=== PATIENT | male | born 1965 | race Caucasian/White ===

== ENCOUNTER 2018-12-09 09:33 | Outpatient (REF) | payer BC, SELFPAY ==
[2018-12-09 19:15] LABS: BUN 19 mg/dL (7-18); CREATININE 1.01 mg/dL (0.70-1.30); Calcium 8.8 mg/dL (8.5-10.1); Calculated LDL 118 mg/dL; Chloride 104 mmol/L (98-107); Cholesterol 191 mg/dL (50-200); Glucose 84 mg/dL (70-100); HDL Cholesterol 57 mg/dL (40-60); Potassium 4.6 mmol/L (3.5-5.1); Sodium 142 mmol/L (136-145); Triglyceride 80 mg/dL (30-150)
[2018-12-09 19:16] LABS: Troponin I < 0.05 ng/mL (0.00-0.06)
== END 2018-12-09 09:53 ==
LOC: NCHCN 09:33
PROVIDERS: PCP Nurse Practitioner Family; Visit Provider Nurse Practitioner Family
DX: R07.9 Chest pain, unspecified (principal); Z13.220 Encounter for screening for lipoid disorders
CPT/HCPCS: 80048; 80061; 83721; 84484

== ENCOUNTER 2019-01-02 00:12 | Outpatient (CLI) | payer BC, SELFPAY ==
--- NOTE | 2019-01-02 10:30 | ETT_ITS ---
*[facility]* *[facility]* [address] [place] [address] Stress Electrocardiography Nilesh protocol Date of study: 01/02/2019 *PATIENT PRESENTATION* Height: 170.2cm (67in) Blood Pressure: Weight: 77.3kg (170lb) BSA: 1.93m^2 Ordering physician: Alcira Dos Santos Impressions: Normal study after maximal exercise. Summary: 1. Stress: The target heart rate was achieved. Indication: R07.9. History: REASON FOR TESTING: FOR THE PAST MONTH PATIENT STATES HE HAS BEEN HAVING CONSTANT LEFT SIDED CHEST PRESSURE (2/10). PATIENT REPORTS 2/10 LEFT SIDED PRESSURE UPON ARRIVAL TO TESTING TODAY. NO SIGNIFICANT PAST MEDICAL HISTORY REPORTED. SMOKING STATUS: SMOKED FOR 30 YEARS. 1 PPD. EXERCISE ROUTINE: PATIENT IS A SHARP. DAILY ADL'S. Risk factors: Family history of coronary artery disease. Current tobacco use. Hypertension. Dyslipidemia. Cholesterol: 191mg/dl. HDL: 57mg/dl. LDL: 137mg/dl. Triglycerides: 80mg/dl. ALLERGIES: SATHISH INHIBITORS. MEDICATIONS: METOPROLOL TARTRATE 25 MG DAILY, NORVASC 10 MG DAILY. Protocol: Nilesh protocol. Baseline ECG: SINUS BRADYCARDIA. HR 54 BPM. Stress protocol: + +---+ + !Stage !HR !BP (mmHg) ! + +---+ + !Baseline supine !54 !138/86 (103)! + +---+ + !Baseline standing !56 !132/80 (97) ! + +---+ + !Stage I; 1.7mph, 10degrees; 3 min !90 !142/84 (103)! + +---+ + !Stage II; 2.5mph, 12degrees; 3 min !120!152/90 (111)! + +---+ + !Stage III; 3.4mph, 14degrees; 3 min!146!168/72 (104)! + +---+ + !Peak stress !158! ! + +---+ + !Recovery; 1 min !122!184/60 (101)! + +---+ + !Recovery; 3 min !92 !170/60 (97) ! + +---+ + !Recovery; 6 min !85 !122/78 (93) ! + +---+ + !Recovery; 8 min !87 !130/80 (97) ! + +---+ + !Recovery; 10 min !79 !132/84 (100)! + +---+ + * Stress results: STRESS TEST ENDED IN 9 MINUTES DUE TO FATIGUE. NORMAL HEART RATE AND BLOOD PRESSURE RESPONSE TO EXERCISE. MAX HEART RATE: 158. 94 % OF TARGET HEART RATE ACHIEVED. MET'S: 10.16. NO ECTOPY. PATIENT REPORTED CONSTANT LEFT SIDED CHEST PRESSURE (2/10) FOR THE PAST MONTH, PRIOR TO TESTING , DURING TESTING AND UPON LEAVING AFTER STRESS TEST COMPLETE TODAY. NO SIGNIFICANT ST SEGMENT CHANGES. AVERAGE FUNCTIONAL CAPACITY. The target heart rate was achieved. The rate-pressure product for the peak heart rate and blood pressure was 09509km Hg/min. Study data: Johnathon Martinez MD supervised and was readily available during the procedure. This study was interpreted by [facility]. Study status: Routine. Consent: The risks, benefits, and alternatives to the procedure were explained to the patient and informed consent was obtained. Procedure: Initial setup. A baseline ECG was recorded. Surface ECG leads and manual cuff blood pressure measurements were monitored. Heart sounds: Normal. Lung sounds: Normal. Treadmill exercise testing was performed using the Nilesh protocol. Study completion: The patient tolerated the procedure well and was discharged from the lab. Discharge: The patient left the laboratory in stable condition. Birthdate: Patient birthdate: 1965. Sex: Gender: male. Study date: Study date: 01/02/2019. Study time: 00:01 AM. Signature Documentation: The Stress ECG portion of this study was interpreted by Johnathon Martinez MD. Electronically signed by Johnathon Martinez 01/02/2019 12:22
== END 2019-01-02 00:32 ==
PROVIDERS: PCP Nurse Practitioner Family; Visit Provider Nurse Practitioner Family
DX: R07.9 Chest pain, unspecified (principal); I10 Essential (primary) hypertension; F17.200 Nicotine dependence, unspecified, uncomplicated
CPT/HCPCS: 93017

== ENCOUNTER 2020-02-16 17:12 | Outpatient (REF) | payer SELFPAY ==
[2020-02-16 20:13] LABS: ALT 36 U/L (16-63); AST 16 U/L (15-37); Albumin 4.1 g/dL (3.4-5.0); Alkaline Phosphatase 86 U/L (46-116); Anion Gap 7.4 mmol/L (3-11); BUN 18 mg/dL (7-18); Bilirubin, Total 0.2 mg/dL (0.2-1.0); CO2 29.6 mmol/L (21.0-32.0); CREATININE 0.98 mg/dL (0.70-1.30); Calculated LDL 119 mg/dL (<100); Chloride 102 mmol/L (98-107); Cholesterol 206 mg/dL (<200); Glucose 103 mg/dL (74-106); HDL Cholesterol 57 mg/dL (40-60); Potassium 4.2 mmol/L (3.5-5.1); Sodium 139 mmol/L (136-145); Total Protein 7.8 g/dL (6.4-8.2); Triglyceride 150 mg/dL (<150)
[2020-02-16 20:37] LABS: Amylase 64 U/L (25-115); Bilirubin, Direct 0.09 mg/dL (0.00-0.20); Lipase 68 U/L (73-393)
[2020-02-20 13:03] LABS: Hepatitis B Surface Ab Negative
[2020-02-20 13:04] LABS: HBs Antibody, Quant <5.0 mIU/mL (See Note)
[2020-02-24 16:30] LABS: Hep A Antibody IgM Negative (Negative)
== END 2020-02-16 17:32 ==
LOC: NCHCN 17:12
PROVIDERS: PCP Nurse Practitioner Family; Visit Provider Nurse Practitioner Family
DX: I10 Essential (primary) hypertension (principal); R10.11 Right upper quadrant pain; E78.5 Hyperlipidemia, unspecified
CPT/HCPCS: 80048; 80061; 80076; 83690; 86706; 86709; 82150

== ENCOUNTER 2023-06-01 12:48 | Outpatient (REF) | payer MEDICAID, SELFPAY ==
--- NOTE | 2023-06-01 09:22 | SKI_PTH ---
PATIENT: Morales Yarbrough LOC: [facility] U#:[id number] AGE/SX: 58/M ROOM: RE06/01/[address]: Clayton Escalante DO : 1965 BED: DIS: 06/01/2023 SPEC #: [id number] RECD: 06/01/23 16:36 STATUS: KIRBY REQ #: [id number] TIFF: 06/01/23 09:[address]: Clayton Escalante DEPT: Surgical Specimen RECD BY: Guerline Shirley ENTERED: 06/01/23 16:37 SP TYPE: URIEL FAUSTIN DR: Unknown,Unknown Tissues: 1 - SKIN BIOPSY(SHAVE/PUNCH) Procedures: SKIN LEVEL 4 Comments: [id number]
== END 2023-06-01 12:49 | disposition home or self-care (01) ==
LOC: LBN 12:48
PROVIDERS: Referring Provider Otolaryngology Otolaryngology/Facial Plastic Surgery; Visit Provider Otolaryngology Otolaryngology/Facial Plastic Surgery
DX: C44.92 Squamous cell carcinoma of skin, unspecified
CPT/HCPCS: 88305

== ENCOUNTER → 2023-07-18 03:16 | Outpatient (CLI) | payer MEDICAID, SELFPAY ==
--- NOTE | 2023-07-18 08:00 | DI.CT_ITS ---
Exam(s) CT NECK CHEST W EXAM: CT NECK CHEST W CLINICAL HISTORY: Large SCC of skin,c44.92. TECHNIQUE: Imaging Protocol: Axial computed tomography images with coronal and sagittal reformatted images were created and reviewed. CONTRAST MATERIAL: Intravenous: Omnipaque 350 Contrast volume:100mL COMPARISON: No exams were available for comparison FINDINGS: Orbits and orbital soft tissues: Within normal limits. Visualized paranasal sinuses: Within normal limits. Nasopharynx: Within normal limits. Oropharynx: Within normal limits. Hypopharynx: Within normal limits. Larynx: Within normal limits. Retropharyngeal space: Within normal limits. Parotids/submandibular: Within normal limits. Thyroid gland: Within normal limits. Lymphadenopathy: There is scattered lymph nodes seen along the level one to level three all measurin g less than 8 mm in short axis diameter which are physiologic in nature. Trachea: Within normal limits. Bones: Within normal limits for the patient's age. Carotids/Jugular: Within normal limits. Soft tissues: Mild infiltration in the subcutaneous tissues of the right posterior neck but no foca l fluid collection or mass is seen at this time. Tracheobronchial tree: Patent where visualized. Pulmonary parenchyma: No consolidation or dominant measurable mass. Centrilobular emphysematous mendoza es are present. Mediastinum and Erika: No dominant adenopathy or fluid collection. The esophagus is unremarkable. Thyroid gland: Unremarkable. Pleura: No effusion or pneumothorax. Heart: The heart is not dilated. No coronary artery calcifications are seen. No pericardial effusion. Aorta: Thoracic aorta non-dilated. No evidence of dissection. Pulmonary arteries: Due to the bolus timing, pulmonary artery evaluation for pulmonary emboli is limi en. No large central pulmonary embolus is seen. Upper abdomen: Cholelithiasis. Lymph nodes: Within normal limits. Bones: Within normal limits for the patient's age. Soft tissues: Unremarkable. IMPRESSION: 1. No evidence of thoracic metastatic disease. 2. No evidence of cervical adenopathy. 3. Mild infiltration in the subcutaneous tissues of the right posterior neck but no focal fluid colle ction or mass is seen at this time. RADIATION DOSE DELIVERED: Total DLP DATA REPOSITORY: All CT scans at this facility are submitted to the National Radiology Data Registry (NRDR) Dose Index Registry (DIR) with the [employer] (ACR). RADIATION OPTIMIZATION: All CT scans at this facility use at least one of these dose optimization te chniques: automated exposure control; mA and/or kV adjustment per patient size (includes targeted exa ms where dose is matched to clinical indication); or iterative reconstruction.
[2023-07-18] MEDS: Omnipaque 350 MG/ML 100 ML BTL IJ (14:59)
== END ==
PROVIDERS: Visit Provider Physician Assistant
DX: C44.622 Squamous cell carcinoma of skin of right upper limb, including shoulder (principal); M79.89 Other specified soft tissue disorders; Z12.89 Encounter for screening for malignant neoplasm of other sites
CPT/HCPCS: 70491; 71260; J3490

== ENCOUNTER 2023-09-26 14:43 | Outpatient (REF) | payer MEDICAID, SELFPAY ==
[2023-09-26 15:13] LABS: Abs Immature Grans 0.01 10^3/uL (0.0-0.06); Absolute Eosinophil Count 0.14 10^3/uL (0.0-0.7); Absolute Lymphocyte Count 2.71 10^3/uL (1.2-3.4); Absolute Monocyte Count 0.52 10^3/uL (0.1-0.8); Absolute Neutrophil Count 3.67 10^3/uL (1.2-6.7); Basophils % 1.4 %; HCT 48.5 % (40.0-50.0); HGB 15.8 g/dL (13.5-17.5); Immature Grans % 0.1 %; Lymphocytes % 37.9 %; MCH 29.8 pg (27.0-33.0); MCHC 32.6 % (32.0-36.0); MCV 92 fL (80-95); MPV 11.1 fL (8.0-11.0); Monocytes % 7.3 %; Neutrophils % 51.3 %; Platelet Count 296 10^3/uL (130-400); RDW-SD 44.1 fL; WBC 7.15 10^3/uL (4.4-10.8)
[2023-09-26 15:30] LABS: ALT 36 U/L (16-63); AST 19 U/L (15-37); Albumin 4.2 g/dL (3.4-5.0); Alkaline Phosphatase 87 U/L (46-116); Anion Gap 6.9 mmol/L (3-11); BUN 16 mg/dL (7-18); Bilirubin, Total 0.4 mg/dL (0.2-1.0); CO2 31.1 mmol/L (21.0-32.0); CREATININE 0.9 mg/dL (0.70-1.30); Calcium 9.4 mg/dL (8.5-10.1); Calculated LDL 122 mg/dL (<100); Chloride 104 mmol/L (98-107); Cholesterol 210 mg/dL (<200); Glucose 87 mg/dL (74-106); HDL Cholesterol 65 mg/dL (40-60); Potassium 4.3 mmol/L (3.5-5.1); Sodium 142 mmol/L (136-145); Total Protein 7.6 g/dL (6.4-8.2); Triglyceride 117 mg/dL (<150)
== END 2023-09-26 14:44 | disposition home or self-care (01) ==
LOC: NCHCN 14:43
PROVIDERS: Visit Provider Student in an Organized Health Care Education/Training Program
DX: I10 Essential (primary) hypertension (principal); E78.5 Hyperlipidemia, unspecified
CPT/HCPCS: 80053; 80061; 85025

== ENCOUNTER 2023-11-09 08:20 | Outpatient (CLI) | payer MEDICAID, SELFPAY ==
--- NOTE | 2023-11-09 08:17 | DI.RAD_ITS ---
Exam(s) XR WRIST LT COMPLETE EXAM: XR WRIST LT COMPLETE CLINICAL HISTORY: L wrist pain. TECHNIQUE: 2D digital imaging was performed of the left wrist. Three images were obtained. PA, obl ique and lateral views were obtained. COMPARISON: No exams were available for comparison FINDINGS: BONES: No acute fracture is present. No bony destructive lesion is seen. There is a simple appearing cyst in the radial styloid process. JOINTS: There is narrowing of the lateral aspect of the radiocarpal joint. SOFT TISSUE: Normal. IMPRESSION: Degenerative changes seen at the radiocarpal joint. DATA REPOSITORY: RADIATION DOSE DELIVERED:
== END 2023-11-09 08:21 | disposition home or self-care (01) ==
LOC: DIORS 08:21
PROVIDERS: PCP Student in an Organized Health Care Education/Training Program; Referring Provider Student in an Organized Health Care Education/Training Program; Visit Provider Physician Assistant
DX: M25.532 Pain in left wrist (principal); M19.032 Primary osteoarthritis, left wrist
CPT/HCPCS: 73110

== ENCOUNTER 2024-01-15 10:10 | Day surgery (SDC) | payer MEDICAID, SELFPAY ==
[2024-01-15 10:44] VITALS: BP 139/89; PULSE 70; RESP 18; TEMP 36.3; O2SAT 98
[2024-01-15] MEDS: Lactated Ringers 1,000 ML 80 ML IV (11:02)
[2024-01-15] MEDS: Acetaminophen 500 MG TAB 1000 MG PO (11:11)
[2024-01-15] MEDS: Celecoxib 200 MG CAP 400 MG PO (11:12)
--- NOTE | 2024-01-15 11:22 | W.PM.DSUDISC ---
Date of service: 01/15/24 Time of Service: 12:46 Discharge Plan Disposition Patient Disposition: Home Condition: Good Discharge Details Reason For Visit: Left DeLydia's Tenosynovitis Attending Provider: Sarbjit Pelaez Primary Care Provider: Marko Mariscal Home Meds and New Rx's Prescriptions: New hydrocodone-acetaminophen 5-325 mg tablet 1 tab PO Q6H PRN (Reason: severe pain) Qty: 4 0RF Rx Instructions: Take one tablet up to every 6 hours as needed for severe postoperative pain acetaminophen 500 mg tablet 500 mg PO Q6H PRN (Reason: pain) Qty: 60 2RF ibuprofen 600 mg tablet 600 mg PO TID PRN (Reason: pain) Qty: 60 0RF Continued amlodipine 10 mg tablet 10 mg PO HS albuterol sulfate 90 mcg/actuation HFA aerosol inhaler 1 inh inhalation PRN Discharge Instructions Additional Instructions: Vincent's Discharge Instructions Activity: You should keep the hand elevated as much as possible for the first few days. You may use the other fingers as tolerated but avoid trying to do too much too soon. You may perform light activities with the splint in place. Dressing/Cast: Your splint should stay in place at all times. Do NOT get it wet. You may loosen the SATHISH wrap if you feel it is too tight and then rewrap more loosely. Medications: - You should take Tylenol and Ibuprofen for baseline pain control. - You have Hydrocodone for breakthrough pain. - You may apply ice over the thumb. Follow-up: 7-10 days Referrals: Sarbjit Pelaez MD [ [facility] STAFF PHYSICIAN] - Equipment/Supplies: Splint Activity:: Elevate Remove Dressings/Wound Care:: Do Not Remove Shower/Bathe:: Cover Diet:: As Tolerated Discharge Orders Discharge Orders: Discharge Order (Routine); Ordered 01/15/24 Ordered By: Shakira Hernandez
[2024-01-15 11:35] VITALS: BMI 24.7
--- NOTE | 2024-01-15 11:35 | W.ANESPRE ---
General Info Date of Service Date Performed: 01/15/24 Height: 5 ft 8 in Weight: 73.936 kg Body Mass Index (BMI): 24.7 Surgical Procedure: Operation Date: 01/15/24 13:10 Proposed Procedure Side Surgeon p Wrist Dequervains Release Left Sarbjit Pelaez MD Meds Allergies and Home Medications Allergies Allergy/AdvReac Type Severity Reaction Status Date / Time morphine Allergy Intermediate unknown Verified 01/15/24 10:41 SATHISH Inhibitors Allergy cough Verified 01/15/24 10:41 Home Medication ?Medication ?Instructions ?Recorded amlodipine 10 mg tablet 10 mg PO HS 11/09/23 acetaminophen 500 mg tablet 500 mg PO Q6H PRN pain #60 tabs 01/15/24 albuterol sulfate 90 mcg/actuation 1 inh inhalation PRN 01/15/24 aerosol inhaler hydrocodone 5 mg-acetaminophen 325 1 tab PO Q6H PRN severe pain #4 01/15/24 mg tablet tabs ibuprofen 600 mg tablet 600 mg PO TID PRN pain #60 tabs 01/15/24 Current Visit Medications: Current Medications Generic Name Dose Route Start Last Admin Trade Name Freq PRN Reason Stop Dose Admin Acetaminophen 1,000 mg 01/15/24 06:00 01/15/24 11:11 Acetaminophen 500 Mg Tab PO 02/13/24 23:59 1,000 mg PREOP SUNNI Administration Acetaminophen 650 mg 01/15/24 11:22 Acetaminophen 325 Mg Tab PO 02/14/24 11:21 Q4H PRN PRN Hydrocodone Bitart/Acetaminophen 0 tab 01/15/24 11:22 Hydrocodone 5/Acetaminophen 325 Tab PO 02/14/24 11:21 Q3H PRN PRN Pain Celecoxib 400 mg 01/15/24 06:00 01/15/24 11:12 Celecoxib 200 Mg Cap PO 02/13/24 23:59 400 mg PREOP SUNNI Administration Ringer's Solution 1,000 mls @ 80 mls/hr 01/15/24 06:00 01/15/24 11:02 IV 02/13/24 23:59 80 mls/hr INFUSION SUNNI Administration Cefazolin Sodium/Dextrose 2 gm in 50 mls @ 100 mls/hr 01/15/24 06:00 Ancef Duplex IVPB 02/13/24 23:59 PREOP SUNNI IV Miscellaneous Supplies 1 each 01/15/24 06:00 Iv Access IV 02/13/24 23:59 DIRECTED SUNNI Sodium Chloride 0 ml 01/15/24 06:00 Normal Saline Flush 10 Ml Syr IV 02/13/24 23:59 PRN PRN Sodium Chloride 0 ml 01/15/24 06:00 Normal Saline 10 Ml Vial IJ 02/13/24 23:59 DIRECTED PRN Sterile Water 0 ml 01/15/24 06:00 Water,Injection,Sterile 10 Ml Vial IJ 02/13/24 23:59 DIRECTED PRN PFSH Active Problems Active Problems: Problem Status Onset Code Skin cancer screening Acute Z12.83 De Quervain's tenosynovitis, left Acute M65.4 Visit for suture removal Acute Z48.02 History of squamous cell carcinoma of skin Acute Z85.828 SCCA (squamous cell carcinoma) of skin Acute C44.92 Medical History Medical History Emphysema lung Family history of heart failure Self-injurious behavior Right upper quadrant pain Amnesia 20-30 years ago-fell hit back of head on ice Essential hypertension Memory impairment Hypertension Chest pain pt. states long time ago, never turned into anything just went away Surgical History Surgical History History of surgery Exc. skin cancer S/P left knee arthroscopy History of repair of ACL Right knee, 2 screws History of colonoscopy Tobacco Smoking/Tobacco Use Status: Current every day Tobacco Type: cigarettes Alcohol Alcohol Intake: former Substance Use Substance use: Occasionally Substance use type: does not use and marijuana Vital Signs and Lab Results Vital Signs Most Recent Vital Signs in EMR: Most Recent Vital Signs Temp Pulse Resp BP Pulse Ox 36.3 C L 70 18 139/89 98 01/15/24 10:44 01/15/24 10:44 01/15/24 10:44 01/15/24 10:44 01/15/24 10:44 Lab Results Blood Type / Crossmatch: No Data to Display Complete Blood Count: No Data to Display Complete Metabolic Panel: No Data to Display Liver Function Panel: No Data to Display Coagulation Panel: No Data to Display Cardiac Panel: No Data to Display Arterial Blood Gas: No Data to Display Venous Blood Gas: No Data to Display Pancreas Panel: No Data to Display Thyroid Panel: No Data to Display Infectious Disease: No Data to Display Blood Cultures: No Data to Display Toxicology Panel: No Data to Display Anesthesia Assessment and Plan Anesthesia History Personal History: No History of Anesthesia Complications Family History: No Family History of Anesthesia Complications Exercise Tolerance Exercise Tolerance: Metabolic Equivalents>4 Pertinent Negatives Pertinent Negatives: No Symptoms of GERD Cardiac & Pulmonary Exam Cardiac Exam: Normal S1/S2 Heart Sounds Pulmonary Exam: Clear Bilateral Breath Sounds Implantable Cardiac Device Does patient have a Pacemaker or an ICD?: No Airway Exam Known Difficult Airway: No Mallampati Class: 2 Mouth Opening: Normal (> 3cm) Thyromental Distance: Greater than 3 cm Neck Range of Motion: Full ROM Neck Circumference: Normal Teeth Condition: Normal Dentition ASA Classification ASA Score: ASA 2 Emergency Case?: No NPO Status NPO Status: NPO Clears >2 hours, Solids >8 hours Anesthesia Plan Resuscitation Status: Full Code Anesthesia Technique: General Anesthesia Airway Planned: Natural Airway Monitors Used: Standard Monitors
[2024-01-15] MEDS: ceFAZolin 2 GM/50 ML BAG IVPB (12:20)
[2024-01-15] MEDS: Lidocaine 1% Pres-Free 30 ML VIAL (12:34)
[2024-01-15] MEDS: Sodium Bicarbonate 50 MEQ/50 ML VIAL (12:34)
[2024-01-15 12:49] VITALS: BP 102/78; PULSE 79; RESP 20; TEMP 35.5; O2SAT 96
--- NOTE | 2024-01-15 13:01 | W.ANESPOSTOP ---
Postoperative Evaluation Date, Time and Location Date Performed: 01/15/24 Time Performed: 13:01 Patient Location: Day Surgery Unit Vital Signs Most Recent Imported Vital Signs: Most Recent Vital Signs Temp Pulse Resp BP Pulse Ox 35.5 C L 79 20 102/78 96 01/15/24 12:49 01/15/24 12:49 01/15/24 12:49 01/15/24 12:49 01/15/24 12:49 Pain Score Most Recent Pain Score: Most Recent Pain Score Pain Level 0 01/15/24 12:49 Assessment Mental Status: Awake (Alert & Oriented to Patient Baseline) Airway and Respiratory Function: Patent airway with normal (patient baseline) respiratory exam Cardiovascular Function: Hemodynamically Stable Hydration Status: Adequately Hydrated Nausea & Vomiting: No Nausea or Vomiting Pain: Pt. Denies Any Pain Peripheral Nerve Block: Patient did not receive a nerve block Postoperative Comments:: Pt had significant MIKE with productive cough during procedure. Talked with pt in post-op about cig./THC smoking. Pam Barry CRNA
[2024-01-15 13:30] VITALS: BP 144/99; PULSE 69; RESP 20; TEMP 36.7; O2SAT 98
--- NOTE | 2024-01-15 14:21 | W.PM.OP ---
Date of service: 01/15/24 Time of Service: 12:20 Operative Note Operative Note DATE OF PROCEDURE: 01/15/24 PRE-OP DIAGNOSIS: Left Dequervain's Tenosynovitis POST-OP DIAGNOSIS: same PROCEDURE: Left First Extensor Compartment Release SURGEON: Sarbjit Pelaez ANESTHESIA TYPE: General:No Airway Refer to Anesthesia Record ESTIMATED BLOOD LOSS: 2 PATHOLOGY: none sent TOURNIQUET TIME: 5 COMPLICATIONS: None Patient was transported to: same day Patient's condition: stable Indications: Morales is a 58 year old male who has had symptoms of Dequervain's tenosynovitis. Nonoperative treatment options had been trialed. Given their failure, I offered operative intervention. I reviewed the technical details of a first extensor compartment release. I reviewed the risk of the procedure to include bleeding, infection, pain, stiffness, tendon instability, damage to the superficial radial nerve, and complete release. Despite these risks, the patient elected to proceed. Findings: There was a tightened first extensor compartment. There is notable synovitis and fluid seen within the first extensor compartment. Procedure Description: Morales was greeted in the preoperative holding area. Name and surgical site were confirmed. The history and physical was completed. The consent was reviewed the patient and signed. He was taken back to the operating room. The patient was placed in the supine position and monitored anesthesia care was initiated. The left was then prepped with ChloraPrep and draped in a standard fashion after a nonsterile tourniquet was placed high up onto the arm. Prophylactic antibiotics in the form of cefazolin were administered. A timeout was performed for safe surgery. The surgical site was drawn on the skin. The planned surgical field was anesthetized with 0.25% bupivacaine with epinephrine. The limb was exsanguinated and the tourniquet was inflated where it stayed for 5 minutes. A 2 cm incision was made longitudinally over the radial styloid. The skin was incised only. The deep tissue subcutaneous fat was dissected with a tenotomy scissors trying to protect bridge of the superficial radial nerve. Any branches that were identified were retracted out of the way. The first compartment extensor tendons were then identified. The distal aspect of the first compartment was noted and were released. This release was performed more on the dorsal side to prevent tendon subluxation. The entirety of the first extensor compartment was then released. The slips of the abductor pollicis longus tendon were inspected. They removed to confirm the appropriate motion of the thumb. The extensor pollicis brevis tendon was then identified. There was no separate subcompartment for the extensor pollicis brevis. Traction on the tendon was also used to confirm appropriate extension of the thumb confirming the release of the appropriate tendon. The dorsal radial surface of the radius was once again inspected to make sure there is no other sub-compartments or other restrictions to tendon motion. The wound was then thoroughly irrigated. The deep tissue was closed with a 3-0 Vicryl. The skin was closed with a running subjective 4-0 Monocryl. Skin glue was applied. The tourniquet is released without significant bleeding. The hand was dressed with 4 x 4's, Kerlex and SATHISH wrap into a soft thumb spica splint. All counts were correct. Patient was transferred back to same day surgery area in stable condition.
== END 2024-01-15 13:45 | disposition home or self-care (01) ==
PROVIDERS: PCP Student in an Organized Health Care Education/Training Program; Visit Provider Student in an Organized Health Care Education/Training Program
PROC: (CPT 25000; principal; 2024-01-15 13:00)
DX: M65.4 Radial styloid tenosynovitis [de Quervain] (principal)
CPT/HCPCS: 25000; J0690; J1100; J2405; J2704

== ENCOUNTER 2024-03-07 11:24 | Day surgery (SDC) | payer MEDICAID, SELFPAY ==
[2024-03-07 12:05] VITALS: BP 141/98; PULSE 69; RESP 20; TEMP 36.7; O2SAT 98
[2024-03-07] MEDS: Normal Saline Flush 10 ML SYR IV (12:27)
--- NOTE | 2024-03-07 13:39 | W.ANESPRE ---
General Info Date of Service Date Performed: 03/07/24 Height: 5 ft 8 in Weight: 70.4 kg Body Mass Index (BMI): 23.6 Surgical Procedure: Operation Date: 03/07/24 14:05 Proposed Procedure Side Surgeon thuy ROJAS MD Meds Allergies and Home Medications Allergies Allergy/AdvReac Type Severity Reaction Status Date / Time morphine Allergy Intermediate unknown Verified 03/07/24 12:04 SATHISH Inhibitors Allergy cough Verified 03/07/24 12:04 Home Medication ?Medication ?Instructions ?Recorded amlodipine 10 mg tablet 10 mg PO HS 11/09/23 acetaminophen 500 mg tablet 500 mg PO Q6H PRN pain #60 tabs 01/15/24 albuterol sulfate 90 mcg/actuation 1 inh inhalation PRN 01/15/24 aerosol inhaler ibuprofen 600 mg tablet 600 mg PO TID PRN pain #60 tabs 01/15/24 bisacodyl 5 mg tablet,delayed 5 mg PO ONCE #4 tabs 02/21/24 release (Dulcolax (bisacodyl)) polyethylene glycol 3350 17 17 g PO ONCE #238 grams 02/21/24 gram/dose oral powder Current Visit Medications: Current Medications Generic Name Dose Route Start Last Admin Trade Name Freq PRN Reason Stop Dose Admin IV Miscellaneous Supplies 1 each 03/07/24 06:00 Iv Access IV 04/05/24 23:59 DIRECTED SUNNI Sodium Chloride 0 ml 03/07/24 06:00 03/07/24 12:27 Normal Saline Flush 10 Ml Syr IV 04/05/24 23:59 10 ml PRN PRN Administration Sodium Chloride 0 ml 03/07/24 06:00 Normal Saline 10 Ml Vial IJ 04/05/24 23:59 DIRECTED PRN Sterile Water 0 ml 03/07/24 06:00 Water,Injection,Sterile 10 Ml Vial IJ 04/05/24 23:59 DIRECTED PRN PFSH Active Problems Active Problems: Problem Status Onset Code Skin cancer screening Acute Z12.83 Visit for suture removal Acute Z48.02 History of squamous cell carcinoma of skin Acute Z85.828 SCCA (squamous cell carcinoma) of skin Acute C44.92 Medical History Medical History Emphysema lung Family history of heart failure Self-injurious behavior Right upper quadrant pain Amnesia 20-30 years ago-fell hit back of head on ice Essential hypertension Memory impairment Hypertension Chest pain pt. states long time ago, never turned into anything just went away Surgical History Surgical History (Updated 03/05/24 @ 11:54 by Prashant Abarca) History of surgery on wrist De Quervain's tenosynovitis, left Status post release: 01/15/2024 Injection: 11/09/2023 History of surgery Exc. skin cancer S/P left knee arthroscopy History of repair of ACL Right knee, 2 screws History of colonoscopy Tobacco Smoking/Tobacco Use Status: Current every day Tobacco Type: cigarettes Alcohol Alcohol Intake: former Substance Use Substance use: Socially Substance use type: marijuana Vital Signs and Lab Results Vital Signs Most Recent Vital Signs in EMR: Most Recent Vital Signs Temp Pulse Resp BP Pulse Ox 36.7 C 69 20 141/98 H 98 03/07/24 12:05 03/07/24 12:05 03/07/24 12:05 03/07/24 12:05 03/07/24 12:05 Lab Results Blood Type / Crossmatch: No Data to Display Complete Blood Count: No Data to Display Complete Metabolic Panel: No Data to Display Liver Function Panel: No Data to Display Coagulation Panel: No Data to Display Cardiac Panel: No Data to Display Arterial Blood Gas: No Data to Display Venous Blood Gas: No Data to Display Pancreas Panel: No Data to Display Thyroid Panel: No Data to Display Infectious Disease: No Data to Display Blood Cultures: No Data to Display Toxicology Panel: No Data to Display Imaging and Studies Imaging and Studies Study information below may be from another EMR and interpreted by another provider. Please see original notes in EMR for more complete details. Stress Test Summary: STRESS TEST PATIENT NAME: BRITTANI GONZALEZ UNIT #: [id number] ADMITTING PROVIDER: MARIANA RECIO, [facility] PROVIDER: Alcira Dos Santos NP DATE OF SERVICE: 01/02/19 : 1965 *[facility]* *[facility]* [address] [place] [address] Stress Electrocardiography Nilesh protocol Date of study: 01/02/2019 *PATIENT PRESENTATION* Height: 170.2cm (67in) Blood Pressure: Weight: 77.3kg (170lb) BSA: 1.93m^2 Ordering physician: Alcira Dos Santos Impressions: Normal study after maximal exercise. Summary: 1. Stress: The target heart rate was achieved. Indication: R07.9. History: REASON FOR TESTING: FOR THE PAST MONTH PATIENT STATES HE HAS BEEN HAVING CONSTANT LEFT SIDED CHEST PRESSURE (2/10). PATIENT REPORTS 2/10 LEFT SIDED PRESSURE UPON ARRIVAL TO TESTING TODAY. NO SIGNIFICANT PAST MEDICAL HISTORY REPORTED. SMOKING STATUS: SMOKED FOR 30 YEARS. 1 PPD. EXERCISE ROUTINE: PATIENT IS A SHARP. DAILY ADL'S. Risk factors: Family history of coronary artery disease. Current tobacco use. Hypertension. Dyslipidemia. Cholesterol: 191mg/dl. HDL: 57mg/dl. LDL: 137mg/dl. Triglycerides: 80mg/dl. ALLERGIES: SATHISH INHIBITORS. MEDICATIONS: METOPROLOL TARTRATE 25 MG DAILY, NORVASC 10 MG DAILY. Protocol: Nilesh protocol. Baseline ECG: SINUS BRADYCARDIA. HR 54 BPM. Stress protocol: + +---+ + !Stage !HR !BP (mmHg) ! + +---+ + !Baseline supine !54 !138/86 (103)! + +---+ + !Baseline standing !56 !132/80 (97) ! + +---+ + !Stage I; 1.7mph, 10degrees; 3 min !90 !142/84 (103)! + +---+ + !Stage II; 2.5mph, 12degrees; 3 min !120!152/90 (111)! + +---+ + !Stage III; 3.4mph, 14degrees; 3 min!146!168/72 (104)! + +---+ + !Peak stress !158! ! + +---+ + !Recovery; 1 min !122!184/60 (101)! + +---+ + !Recovery; 3 min !92 !170/60 (97) ! + +---+ + !Recovery; 6 min !85 !122/78 (93) ! + +---+ + !Recovery; 8 min !87 !130/80 (97) ! + +---+ + !Recovery; 10 min !79 !132/84 (100)! + +---+ + * Stress results: STRESS TEST ENDED IN 9 MINUTES DUE TO FATIGUE. NORMAL HEART RATE AND BLOOD PRESSURE RESPONSE TO EXERCISE. MAX HEART RATE: 158. 94 % OF TARGET HEART RATE ACHIEVED. MET'S: 10.16. NO ECTOPY. PATIENT REPORTED CONSTANT LEFT SIDED CHEST PRESSURE (2/10) FOR THE PAST MONTH, PRIOR TO TESTING , DURING TESTING AND UPON LEAVING AFTER STRESS TEST COMPLETE TODAY. NO SIGNIFICANT ST SEGMENT CHANGES. AVERAGE FUNCTIONAL CAPACITY. The target heart rate was achieved. The rate-pressure product for the peak heart rate and blood pressure was 13908of Hg/min. Study data: Johnathon Martinez MD supervised and was readily available during the procedure. This study was interpreted by [facility]. Study status: Routine. Consent: The risks, benefits, and alternatives to the procedure were explained to the patient and informed consent was obtained. Procedure: Initial setup. A baseline ECG was recorded. Surface ECG leads and manual cuff blood pressure measurements were monitored. Heart sounds: Normal. Lung sounds: Normal. Treadmill exercise testing was performed using the Nilesh protocol. Study completion: The patient tolerated the procedure well and was discharged from the lab. Discharge: The patient left the laboratory in stable condition. Birthdate: Patient birthdate: 1965. Sex: Gender: male. Study date: Study date: 01/02/2019. Study time: 00:01 AM. Signature Documentation: The Stress ECG portion of this study was interpreted by Johnathon Martinez MD. Electronically signed by Johnathon Martinez 01/02/2019 12:22 Dictated by: MARIANA RECIO, [facility] Dictated:: 01/02/19 0001 01/02/19 1222 Transcribed Date: Transcribed Time: By: JOSEPHINE This is privileged, confidential information, intended only for the provider named. Any use or distribution by any person other than this provider is strictly prohibited. If you receive this report in error, please notify us immediately at [phone] and return the original report to us at the address above. Thank you. Anesthesia Assessment and Plan Anesthesia History Personal History: No History of Anesthesia Complications Family History: No Family History of Anesthesia Complications Exercise Tolerance Exercise Tolerance: Metabolic Equivalents>4 Pertinent Negatives Pertinent Negatives: No Symptoms of GERD Cardiac & Pulmonary Exam Cardiac Exam: Normal S1/S2 Heart Sounds Pulmonary Exam: Clear Bilateral Breath Sounds Implantable Cardiac Device Does patient have a Pacemaker or an ICD?: No Airway Exam Known Difficult Airway: No Mallampati Class: 2 Mouth Opening: Normal (> 3cm) Thyromental Distance: Greater than 3 cm Neck Range of Motion: Full ROM Neck Circumference: Normal Teeth Condition: Generalized Poor Dentition (Many missing teeth throughout mouth), Loose or Chipped and Dental Caries ASA Classification ASA Score: ASA 2 Emergency Case?: No NPO Status NPO Status: NPO Clears >2 hours, Solids >8 hours Anesthesia Plan Resuscitation Status: Full Code Anesthesia Technique: General Anesthesia Airway Planned: Natural Airway Monitors Used: Standard Monitors
[2024-03-07 14:00] VITALS: BMI 23.6
[2024-03-07 15:10] VITALS: BP 128/92; PULSE 93; RESP 18; TEMP 36.5; O2SAT 95
--- NOTE | 2024-03-07 15:27 | W.ANESPOSTOP ---
Postoperative Evaluation Date, Time and Location Date Performed: 03/07/24 Time Performed: 15:10 Patient Location: Day Surgery Unit Vital Signs Most Recent Imported Vital Signs: Most Recent Vital Signs Temp Pulse Resp BP Pulse Ox 36.5 C 93 H 18 128/92 H 95 03/07/24 15:10 03/07/24 15:10 03/07/24 15:10 03/07/24 15:10 03/07/24 15:10 Pain Score Most Recent Pain Score: Most Recent Pain Score Pain Level 0 03/07/24 15:10 Assessment Mental Status: Awake (Alert & Oriented to Patient Baseline) Airway and Respiratory Function: Patent airway with normal (patient baseline) respiratory exam Cardiovascular Function: Hemodynamically Stable Hydration Status: Adequately Hydrated Nausea & Vomiting: No Nausea or Vomiting Pain: Pt. Denies Any Pain Peripheral Nerve Block: Patient did not receive a nerve block
[2024-03-07 15:40] VITALS: BP 131/84; PULSE 68; RESP 16; TEMP 36.3; O2SAT 100
--- NOTE | 2024-03-07 15:43 | W.PM.OP ---
Operative Note Operative Note PRE-OP DIAGNOSIS: Colon cancer screening POST-OP DIAGNOSIS: other (Colon polyps, diverticulosis) PROCEDURE: Colonoscopy SURGEON: Olga ROJAS ANESTHESIA TYPE: MAC Refer to Anesthesia Record PATHOLOGY: other (Cecal polyp x 2) COMPLICATIONS: None Patient was transported to: PACU Patient's condition: stable Findings: 2 subcentimeter polyps, diverticular disease Procedure Description: After obtaining informed consent, patient was brought back to the operating room. He was turned in his left side and connected to the monitors. Timeout was performed. Propofol was administered by the nurse site operations manager. I began by performing a digital rectal exam. This was unremarkable. I advanced the colonoscope the length of the colon. I attained the cecum as identified by the appendiceal orifice and the ileocecal valve. I did not intubate the ileocecal valve. Prep was good. I noted a pedunculated 7 to 8 mm polyp in the cecum. I remove this in its entirety in 3 pieces with a hot snare. All 3 pieces were retrieved with suction. I also noted a 3 mm pedunculated polyp in the cecum that I removed with a hot snare. This was also retrieved with suction and sent to pathology. I withdrew along the ascending colon, transverse colon, descending colon, and sigmoid colon. No further polyps were noted. He did have mild diverticular disease in the sigmoid colon. I withdrew into the rectum. I did retroflex. This was unremarkable. I decompressed the rectum and the sigmoid I withdrew the scope entirely. Patient tolerated well. He went to recovery in stable condition. Disposition: Patient will be discharged home later today. We will call him with the pathology report in a couple of weeks. He will likely need a repeat colonoscopy in 5 years, pending pathology. Date of Procedure: 03/07/24
== END 2024-03-07 15:55 | disposition home or self-care (01) ==
PROVIDERS: PCP Student in an Organized Health Care Education/Training Program; Visit Provider Surgery
PROC: 0DJD8ZZ Inspection of Lower Intestinal Tract, Via Natural or Artificial Opening Endoscopic (ICD-10-PCS; CPT 45378; principal; 2024-03-07 14:00)
DX: Z12.11 Encounter for screening for malignant neoplasm of colon (principal); I10 Essential (primary) hypertension; J43.9 Emphysema, unspecified; D37.4 Neoplasm of uncertain behavior of colon; K57.30 Diverticulosis of large intestine without perforation or abscess without bleeding
CPT/HCPCS: 45385; 00123; 88305; J2704

== ENCOUNTER 2024-03-24 17:23 | Emergency (ER) | payer MEDICAID, SELFPAY ==
[2024-03-24 17:25] VITALS: BP 173/100; PULSE 70; RESP 15; TEMP 36.6; O2SAT 97
--- NOTE | 2024-03-24 17:36 | DI.CT_ITS ---
Exam(s) CT NECK W EXAM: CT NECK W CLINICAL HISTORY: left sided neck swelling sensation?abscess. TECHNIQUE: Imaging Protocol: Axial computed tomography images with coronal and sagittal reformatted images were created and reviewed CONTRAST MATERIAL: Intravenous: Omnipaque 350 Contrast volume:100 ml contrast COMPARISON: CT CT NECK CHEST W from 07/18/2023 FINDINGS: Parotids: Normal. Submandibular glands: Normal. Thyroid gland: Normal. Lymph nodes: There are scattered lymph nodes seen along the level one to level three all measuring le ss than 8 mm in short axis diameter which are physiologic in nature. Carotids arteries: No significant stenosis or dissection. No significant atherosclerotic changes. Vertebral arteries: No significant stenosis or dissection. Soft tissues: The floor the mouth is unremarkable. The tonsils and adenoids are unremarkable. The epiglottis and vocal cords are within normal limits. Lungs: Mild emphysematous changes at the lung apices. Bones: Degenerative changes of the cervical spine. Visualized portions of the brain and orbits: Unremarkable. Sinuses and mastoids: Clear. IMPRESSION: Normal CT scan of the neck. No evidence of abscess. RADIATION DOSE DELIVERED: Total DLP DATA REPOSITORY: All CT scans at this facility are submitted to the National Radiology Data Registry (NRDR) Dose Index Registry (DIR) with the [employer] (ACR). RADIATION OPTIMIZATION: All CT scans at this facility use at least one of these dose optimization te chniques: automated exposure control; mA and/or kV adjustment per patient size (includes targeted exa ms where dose is matched to clinical indication); or iterative reconstruction.
--- NOTE | 2024-03-24 17:41 | ED.GENADUL_ITS ---
Discharge Plan Disposition Patient Disposition: Home Condition: Stable Discharge Details Clinical Impression: Globus sensation, Tongue lesion Primary Care Provider: Marko Mariscal ED Provider: Tre Hermosillo Home Meds and New Rx's Prescriptions: New amoxicillin 500 mg tablet 500 mg PO BID Qty: 18 0RF Continued bisacodyl [Dulcolax (bisacodyl)] 5 mg tablet,delayed release (DR/EC) 5 mg PO ONCE Qty: 4 0RF Rx Instructions: Take per colonoscopy instructions provided by ordering providers office polyethylene glycol 3350 17 gram/dose powder 17 g PO ONCE Qty: 238 0RF Rx Instructions: Take per colonoscopy instructions provided by ordering providers office amlodipine 10 mg tablet 10 mg PO HS albuterol sulfate 90 mcg/actuation HFA aerosol inhaler 1 inh inhalation PRN acetaminophen 500 mg tablet 500 mg PO Q6H PRN (Reason: pain) Qty: 60 2RF ibuprofen 600 mg tablet 600 mg PO TID PRN (Reason: pain) Qty: 60 0RF Discharge Instructions Additional Instructions: Your CAT scan did not show any concerning findings at this time. Call Dr. Escalante's office to arrange for follow-up for your neck swelling sensation and also the tongue lesion. If you feel more ill, have inability to swallow liquids return to the emergency department for reevaluation. HPI General Mode of arrival: ambulatory . Date/Time Provider Initiated Documentation: 03/24/24 17:24 . Limitations to Documentation: no limitations . Information obtained by: patient . History of Present Illness 58 year old M presents to the emergency department with the chief complaint of Left-sided neck fullness, tongue lesion, described as moderate, Quality is described as aching, and is localized to the mouth. Patient started experiencing this month(s) (1) and it has been constant. No relieving factors improve symptom(s), No exacerbating factors reported . Patient notes no other symptoms.. Patient did receive the following treatments prior to arrival, none Related Data Home Medications ?Medication ?Instructions ?Recorded ?Confirmed amlodipine 10 mg tablet 10 mg PO HS 11/09/23 03/24/24 acetaminophen 500 mg tablet 500 mg PO Q6H PRN pain #60 tabs 01/15/24 03/24/24 albuterol sulfate 90 mcg/actuation 1 inh inhalation PRN 01/15/24 03/24/24 aerosol inhaler ibuprofen 600 mg tablet 600 mg PO TID PRN pain #60 tabs 01/15/24 03/24/24 bisacodyl 5 mg tablet,delayed 5 mg PO ONCE #4 tabs 02/21/24 03/24/24 release (Dulcolax (bisacodyl)) polyethylene glycol 3350 17 17 g PO ONCE #238 grams 02/21/24 03/24/24 gram/dose oral powder amoxicillin 500 mg tablet 500 mg PO BID #18 tabs 03/24/24 Previous Rx's ?Medication ?Instructions ?Recorded acetaminophen 500 mg tablet 500 mg PO Q6H PRN pain #60 tabs 01/15/24 ibuprofen 600 mg tablet 600 mg PO TID PRN pain #60 tabs 01/15/24 bisacodyl 5 mg tablet,delayed 5 mg PO ONCE #4 tabs 02/21/24 release (Dulcolax (bisacodyl)) polyethylene glycol 3350 17 17 g PO ONCE #238 grams 02/21/24 gram/dose oral powder amoxicillin 500 mg tablet 500 mg PO BID #18 tabs 03/24/24 Allergies Allergy/AdvReac Type Severity Reaction Status Date / Time morphine Allergy Intermediate unknown Verified 03/24/24 17:29 SATHISH Inhibitors Allergy cough Verified 03/24/24 17:29 General Stated Complaint: DentalOral JESSE: 3 Review of Systems All systems reviewed & are unremarkable except as noted in HPI and below Constitutional Constitutional: Denies chills and Denies fever(s) ENT Ears, Nose, Mouth, and Throat: Denies change in voice and Reports mouth lesions Cardiovascular Cardiovascular: Denies chest pain and Denies dyspnea Respiratory Respiratory: Denies cough and Denies dyspnea Gastrointestinal Gastrointestinal: Denies abdominal pain, Denies nausea and Denies vomiting Musculoskeletal Musculoskeletal: Denies joint swelling Exam Const General: no acute distress Orientation: alert HENMT Head: normal to inspection Ears: external ears normal General nose exam: external nose normal Mouth: moist mucous membranes Throat: posterior oropharynx normal and uvula midline Eyes General: appearance normal, both eyes and all related structures Neck Neck: normal visual inspection Resp Effort & Inspection: normal respiratory effort and able to speak in complete sentences Cardio Rate: regular rate Skin General skin exam: no rashes or lesions noted Neuro General: patient alert and patient oriented x3 Extrem General: normal to inspection Psych Mental Status: mental status grossly normal Course Vital Signs Vital signs: Vital Signs Temperature 36.6 C 03/24/24 17:25 Pulse 70 03/24/24 17:25 Respiratory Rate 15 03/24/24 17:25 Blood Pressure 173/100 H 03/24/24 17:25 Pulse Oximetry 97 03/24/24 17:25 Temperature 36.6 C 03/24/24 17:25 Pulse 70 03/24/24 17:25 Respiratory Rate 15 03/24/24 17:25 Blood Pressure 173/100 H 03/24/24 17:25 Blood Pressure Position Sitting 03/24/24 17:25 Pulse Oximetry 97 03/24/24 17:25 Oxygen Delivery Method Room Air 03/24/24 17: Oxygen Flow Rate 0 03/24/24 17:25 Medical Decision Making 58-year-old male with a history of hypertension and chronic smoker comes in with 1 month of a lesion on the left side of his tongue and also feeling like he has a fullness in the left side of his neck. He denies any fevers, chills, difficulty swallowing or breathing. He is well-appearing speaking in full sentences without any stridor or drooling on exam. He has a half a centimeter ulcerated lesion on the left mid tongue. There is no swelling of the tongue. The posterior pharynx is normal with a midline uvula. He points to the left upper lateral anterior neck where he feels a fullness. There is no warmth or visible swelling or palpable deformities. Concerned that the lesion on his tongue may be cancer and advised that he would have to have follow-up and have this biopsied. I will check a CBC and CMP and a CTA of the neck to evaluate for possible abscess versus other cancers that could be in his throat not visible on exam. CT shows no significant findings. He does note excessive left ear pain and on exam his tympanic membrane is erythematous. I recommended him following up with the ENT and he states he is a patient of Dr. Escalante so he will call his office for arrange for follow-up. Return precautions given Differential Diagnosis Differential Diagnosis: Abscess, cancer Quality:SDOH Health Related Social Needs: No Data to Display PFSH All Active Problems (Updated 03/24/24 @ 18:55 by Tre Hermosillo MD) Tongue lesion (Acute) Globus sensation (Acute) Skin cancer screening (Acute) Visit for suture removal (Acute) History of squamous cell carcinoma of skin (Acute) SCCA (squamous cell carcinoma) of skin (Acute) Medical History (Updated 03/24/24 @ 18:55 by Tre Hermosillo MD) Emphysema lung Family history of heart failure Self-injurious behavior Right upper quadrant pain Amnesia 20-30 years ago-fell hit back of head on ice Essential hypertension Memory impairment Hypertension Chest pain pt. states long time ago, never turned into anything just went away Surgical History (Updated 03/05/24 @ 11:54 by Prashant Abarca) History of surgery on wrist De Quervain's tenosynovitis, left Status post release: 01/15/2024 Injection: 11/09/2023 History of surgery Exc. skin cancer S/P left knee arthroscopy History of repair of ACL Right knee, 2 screws History of colonoscopy Social History (Updated 02/21/24 @ 09:06 by ARIANNA Miranda) Smoking/Tobacco Use Status: Current every day Tobacco Type: cigarettes Smoking risk assessment performed?: Yes Alcohol Intake: former Drug use: Socially Substance use type: marijuana Details: once every 4 days Housing: apartment Do you feel safe at home: Yes Do you feel safe in your relationship?: Yes
[2024-03-24 17:56] VITALS: BP 173/100; PULSE 70; RESP 15; TEMP 36.6; O2SAT 97
[2024-03-24 18:03] LABS: Abs Immature Grans 0.01 10^3/uL (0.0-0.06); Absolute Basophil Count 0.07 10^3/uL (0.0-0.2); Absolute Eosinophil Count 0.22 10^3/uL (0.0-0.7); Absolute Lymphocyte Count 2.87 10^3/uL (1.2-3.4); Basophils % 0.9 %; Eosinophils % 2.8 %; HCT 48.5 % (40.0-50.0); HGB 15.8 g/dL (13.5-17.5); Immature Grans % 0.1 %; Lymphocytes % 36.5 %; MCH 29.5 pg (27.0-33.0); MCHC 32.6 % (32.0-36.0); MCV 91 fL (80-95); MPV 10.3 fL (8.0-11.0); Monocytes % 7.6 %; Neutrophils % 52.1 %; Platelet Count 266 10^3/uL (130-400); RBC 5.35 10^6/uL (4.36-5.78); RDW 13.2 % (11.8-14.1); RDW-SD 44.2 fL; WBC 7.87 10^3/uL (4.4-10.8)
[2024-03-24] MEDS: Omnipaque 350 MG/ML 100 ML BTL IJ (18:11)
[2024-03-24] MEDS: Normal Saline - Diluent 50 ML VIAL IJ (18:13)
[2024-03-24 18:20] LABS: ALT 28 U/L (16-63); AST 17 U/L (15-37); Albumin 3.9 g/dL (3.4-5.0); Alkaline Phosphatase 75 U/L (46-116); Anion Gap 6.4 mmol/L (3-11); BUN 16 mg/dL (7-18); Bilirubin, Total 0.17 mg/dL (0.2-1.0); CO2 29.6 mmol/L (21.0-32.0); CREATININE 0.9 mg/dL (0.70-1.30); Chloride 106 mmol/L (98-107); Glucose 94 mg/dL (74-106); Magnesium 2.1 mg/dL (1.8-2.4); Potassium 4.4 mmol/L (3.5-5.1); Sodium 142 mmol/L (136-145); Total Protein 7.6 g/dL (6.4-8.2)
[2024-03-24] MEDS: Amoxicillin 500 MG CAP PO ×2 (19:10)
[2024-03-24 19:11] VITALS: BP 157/99; PULSE 69; RESP 16; TEMP 36.8; O2SAT 98
--- NOTE | 2024-03-24 19:14 | NUR.NOTE ---
Nursing Note: SIDDHARTH Martines gave report to SIDDHARTH Julian. Pt was ready for discharge. SIDDHARTH Julian never saw patient. This RN assumed care of patient at 1905 to medicate and discharge patient only.
== END 2024-03-24 19:16 | disposition home or self-care (01) ==
PROVIDERS: Emergency Provider Emergency Medicine; PCP Student in an Organized Health Care Education/Training Program
DX: R09.A2 Foreign body sensation, throat (principal); K14.8 Other diseases of tongue; I10 Essential (primary) hypertension; F17.210 Nicotine dependence, cigarettes, uncomplicated
CPT/HCPCS: 36415; 70491; 80053; 99285; 83735; 85025; 99284; J3490

== ENCOUNTER 2024-06-06 07:49 | Outpatient (CLI) | payer MEDICAID, SELFPAY ==
--- NOTE | 2024-06-06 07:45 | DI.MRI_ITS ---
Exam(s) MR UPPER JOINT LT WO EXAM: MR UPPER JOINT LT WO CLINICAL HISTORY: lt wrist pain,m25.532. TECHNIQUE: Multiplanar multisequence MRI was performed. COMPARISON: None. FINDINGS: BONES: There are significant degenerative changes in the lateral half of the radiocarpal joint with s ignificant articular cartilage loss at this level between the radial styloid and proximal scaphoid. T here is some bone edema surrounding a degenerative subarticular cyst in the distal radial styloid, th is degenerative subarticular cyst measuring 6 by 4 by 6 mm. There is also some edema in the adjacent mid-distal aspect of the scaphoid-navicular bone as well as multiple tiny degenerative subarticular c ysts in the distal dorsal aspect of the scaphoid bone. There is very mild intraosseous edema within the lunate bone. There is a tiny 1-2 mm benign cyst within the mid aspect of the lunate which does n ot appear degenerative. No abnormal signal within the triquetrum nor within the pisiform nor within the bones of the distal carpal row nor within the visualized metacarpal bases. LIGAMENTS: Scapholunate ligaments are poorly visualized, indicating probable chronic tear. The distance between the scaphoid and lunate is upper normal. Lunotriquetral ligament appears intact. TRIANGULAR FIBROCARTILAGE: Unremarkable. TENDONS: Flexors: Unremarkable. No tears nor tenosynovitis. Carpal tunnel:Unremarkable Extensors: In the 1st extensor or compartment there is signal abnormality evident within the extensor pollicis brevis but no high-grade tear. No significant tenosynovitis at this level. Other extensor or tendons appear unremarkable. MUSCLES: Unremarkable. MEDIAN NERVE: Unremarkable on this noncontrast examination. THUMB: No evidence of ulnar collateral ligament tear. IMPRESSION: 1. 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 2. Poor visualization of the scapholunate ligaments consistent with probable chronic disruption. Scap holunate distance is upper normal and there is no proximal migration of the capitate bone. 3. There is tendinosis of the extensor pollicis brevis tendon on the lateral aspect of the wrist oumou cent to the radial styloid. There is no high-grade tear of this structure and there is no tenosynovit is. DATA REPOSITORY:
--- NOTE | 2024-06-06 17:31 | DI.VRAD_ITS ---
PROCEDURE INFORMATION: Exam: MR Left Upper Extremity Joint Without Contrast; Wrist Exam date and time: 06/06/2024 2:28 PM Age: 59 years old Clinical indication: Other: Left wrist pain TECHNIQUE: Imaging protocol: Magnetic resonance imaging of the left upper extremity without contrast. Exam focused on the wrist. COMPARISON: CR XR WRIST LT COMPLETE 11/09/2023 8:25 AM FINDINGS: Bones/joints: No acute fracture. No significant joint effusion. Moderate joint space narrowing and full-thickness cartilage loss is noted between the radial styloid and scaphoid. Moderate marrow edema is present at the radial styloid and the distal scaphoid. Subchondral cysts are noted at the radial styloid and the dorsal scaphoid. Mild signal abnormality is additionally noted at the proximal pole of the scaphoid. There is no evidence of an old scaphoid waist fracture. Mild marrow edema is present at the proximal lunate. Marrow signal is otherwise normal. Scapholunate ligament: The scapholunate ligaments are not visualized. The scapholunate interval measures up to 3 mm. The bony protuberance is noted at the proximal lateral lunate. Mild subluxation is noted between the scaphoid and lunate. There is no axial migration of the capitate. Lunotriquetral ligament: Unremarkable. Triangular fibrocartilage complex: Unremarkable. Flexor compartment tendons: Unremarkable. Extensor compartment tendons: Moderate signal abnormality and fraying are observed in the extensor pollicis brevis tendon. The other extensor tendons show normal signal and morphology. Soft tissues: Moderate soft tissue thickening is noted around the distal pole of the scaphoid. There are no loculated fluid collections. IMPRESSION: 1. 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 2. 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 3. Moderate tendinosis, extensor pollicis brevis. COMMENTS: Please note this is a preliminary report. Please see final report follow. Dictated and Authenticated by: Tre Madrigal MD. Orderin Latanya Schaffer MD
== END 2024-06-06 08:09 ==
LOC: DI 07:49
PROVIDERS: PCP Student in an Organized Health Care Education/Training Program; Visit Provider Student in an Organized Health Care Education/Training Program
DX: M19.032 Primary osteoarthritis, left wrist (principal)
CPT/HCPCS: 73221

== ENCOUNTER 2024-06-16 15:39 | Outpatient (CLI) | payer MEDICAID, SELFPAY ==
--- NOTE | 2024-06-16 09:50 | DI.RAD_ITS ---
Exam(s) XR WRIST RT COMPL NAVICULAR EXAM: XR WRIST RT COMPL NAVICULAR CLINICAL HISTORY: eval R wrist pain. TECHNIQUE: 2D digital imaging was performed. COMPARISON: CR XR WRIST LT COMPLETE from 11/09/2023 FINDINGS: Four views No evidence of fracture nor significant ulnar variance. Scapholunate distance is normal. There are no obvious degenerative changes in the radiocarpal joint space (as is present in the opposite-left wr ist). There is a tiny degenerative cysts at the tip of the ulnar styloid, similar to the opposite si de. Bone density normal. No osseous lesions nor erosions. IMPRESSION: Minimal findings. The radiocarpal joint space is better preserved when compared to the opposite-left wrist. DATA REPOSITORY: RADIATION DOSE DELIVERED:
== END 2024-06-16 15:40 | disposition home or self-care (01) ==
LOC: DIORS 15:39
PROVIDERS: PCP Student in an Organized Health Care Education/Training Program; Visit Provider Student in an Organized Health Care Education/Training Program
DX: M19.031 Primary osteoarthritis, right wrist (principal)
CPT/HCPCS: 73110

== ENCOUNTER 2024-08-07 17:13 | Outpatient (REF) | payer MEDICAID, SELFPAY ==
[2024-08-07 19:49] LABS: Anion Gap 6.9 mmol/L (3-11); BUN 20 mg/dL (7-18); CO2 30.1 mmol/L (21.0-32.0); CREATININE 1.1 mg/dL (0.70-1.30); Calcium 9.6 mg/dL (8.5-10.1); Chloride 108 mmol/L (98-107); Estimated GFR 77.33 (mL/min/1.73m2); Glucose 68 mg/dL (74-106); Potassium 4.7 mmol/L (3.5-5.1); Sodium 145 mmol/L (136-145)
== END 2024-08-07 17:14 | disposition home or self-care (01) ==
LOC: NCHCN 17:13
PROVIDERS: PCP Student in an Organized Health Care Education/Training Program; Visit Provider Student in an Organized Health Care Education/Training Program
DX: I10 Essential (primary) hypertension (principal)
CPT/HCPCS: 80048

== ENCOUNTER 2024-12-24 15:33 | Outpatient (REF) | payer MEDICAID, SELFPAY ==
[2024-12-24 16:05] LABS: Abs Immature Grans 0.01 10^3/uL (0.0-0.06); HCT 49.2 % (40.0-50.0); HGB 16.3 g/dL (13.5-17.5); Immature Grans % 0.1 %; MCH 29.8 pg (27.0-33.0); MCHC 33.1 % (32.0-36.0); MCV 90 fL (80-95); MPV 10.9 fL (8.0-11.0); Platelet Count 273 10^3/uL (130-400); RBC 5.47 10^6/uL (4.36-5.78); RDW 13.2 % (11.8-14.1); RDW-SD 43.5 fL; WBC 7.56 10^3/uL (4.4-10.8)
[2024-12-24 16:22] LABS: ALT 22 U/L (16-63); AST 14 U/L (15-37); Albumin 4.1 g/dL (3.4-5.0); Alkaline Phosphatase 92 U/L (46-116); Anion Gap 7.7 mmol/L (3-11); BUN 19 mg/dL (7-18); Bilirubin, Total 0.2 mg/dL (0.2-1.0); CO2 27.3 mmol/L (21.0-32.0); Calcium 9.6 mg/dL (8.5-10.1); Chloride 104 mmol/L (98-107); Estimated GFR 98.38 (mL/min/1.73m2); Glucose 104 mg/dL (74-106); Potassium 4.8 mmol/L (3.5-5.1); Sodium 139 mmol/L (136-145); Total Protein 7.4 g/dL (6.4-8.2)
== END 2024-12-24 15:34 | disposition home or self-care (01) ==
LOC: NCHCN 15:33
PROVIDERS: PCP Student in an Organized Health Care Education/Training Program; Visit Provider Student in an Organized Health Care Education/Training Program
DX: R19.03 Right lower quadrant abdominal swelling, mass and lump (principal)
CPT/HCPCS: 80053; 85025